=== PATIENT | female | born 1975 | race Hispanic/Latino ===

== ENCOUNTER 2022-02-18 18:15 | Emergency (ER) | payer OTHER, BC ==
[~2022-02-18] VITALS: Ht 157.5 cm; Wt 68.0 kg
[2022-02-18 21:04] VITALS: BP 124/70
== END 2022-02-18 21:10 | disposition home or self-care (01) ==
LOC: EDH 18:15
DX: R51.9 Headache, unspecified (principal); Z90.710 Acquired absence of both cervix and uterus; V49.69XA Unspecified car occupant injured in collision with other motor vehicles in traffic accident, initial encounter; Y93.89 Activity, other specified; Y92.89 Other specified places as the place of occurrence of the external cause; Y99.8 Other external cause status
CPT/HCPCS: 70450; 72125; 73030